=== PATIENT | male | born 1930 | race Caucasian/White ===

== ENCOUNTER 2016-12-03 22:49 | Emergency (ER) | payer MEDICARE, OTHER ==
[~2016-12-03 22:49] MED LIST: ASA5GR PO; ASAB PO; BYSTOLIC10 MG PO; CAT1 PO; CELEXA40 MG PO; CENTRUM PO; D 5000 PO; DCN100 PO; DETROLLA4 PO; FISH-EPA1000 MG PO; FLOMAX4 PO; GLUCCHONDR PO; LEVOTHYROXIN100 MCG PO; LEVOTHYROXIN88 MCG PO; LIPITOR40 PO; MULTIVITAMI1 PO; NEUPRO 4MG4 MG/24 HR TOP; NITROSTAT0.4 MG SL; NORV5 PO; OS500+D PO; PHENADOZ12.5 MG RE; PLAVIX PO; PR25 PO; PROSCAR5 PO; PYRID60 PO; REST15 PO; STALEVO150 PO; SYN1 PO; TRAZ50 PO; ULTRAM50 PO; UROXATRAL PO; VALTREX1 GM PO; VITAMIN D31000 UNIT PO; ZIRGAN5 GM OPH; ZOCOR20 PO
[2016-12-03 23:57] LABS: BASOPHILS 0.3 %; BASOPHILS ABSOLUTE 0.02 10/3/uL (0.0-0.16); EOSINOPHILS 2.9 %; EOSINOPHILS ABSOLUTE 0.19 10/3/uL (0.0-0.53); HEMATOCRIT 36.7 % (40.0-51.0); HEMOGLOBIN 12.4 g/dL (13.6-17.8); LYMPHOCYTES 19.8 %; LYMPHOCYTES ABSOLUTE 1.29 10/3/uL (0.67-4.30); MANUAL DIFF NO %; MEAN CORPUS HGB CONC 33.8 g/dL (32.0-36.0); MEAN CORPUSCULAR HEMOGLOB 30.9 pg (26.0-34.0); MEAN CORPUSCULAR VOLUME 91.5 fL (80-100); MEAN PLATELET VOLUME 10.3 fL (9.2-13.0); MONOCYTES 9.2 %; NEUTROPHILS 67.8 %; NEUTROPHILS ABSOLUTE 4.43 10/3/uL (2.02-8.40); PLATELET COUNT 140 10/3/uL (150-400); RBC DISTRIBUTION WIDTH 14.8 % (12.0-16.0); RED CELL COUNT 4.01 10/6/uL (4.7-6.1); WHITE BLOOD CELLS 6.5 10/3/uL (4.5-10.5)
[2016-12-04 00:04] LABS: INTERNATIONAL NORMAL RATI 1.1 UNITS (-)
[2016-12-04 00:05] LABS: PARTIAL THROMBO TIME 31.9 SEC (22.5-37.2)
[2016-12-04 00:24] LABS: BUN (BLOOD UREA NITROGEN) 27 MG/DL (6-23); CHLORIDE, SERUM 107 MMOL/L (96-112); CO2 (CARBON DIOXIDE) 29 MMOL/L (24-34); GFR AFRICAN AMERICAN 49 ML/MIN (>=60); GFR NON AFRICAN AMERICAN 42 ML/MIN (>=60); GLUCOSE, SERUM 107 MG/DL (60-99); SGOT(AST) 17 U/L (5-40); SGPT(ALT) 9 U/L (5-65); SODIUM, SERUM 141 MMOL/L (135-148); TOTAL BILIRUBIN 0.4 MG/DL (0-1.2); TOTAL PROTEIN 6.3 G/DL (6.0-8.5); TROPONIN I <0.02 NG/ML (<0.05)
[2016-12-04 00:28] LABS: A/G RATIO 1.1 (0.7-1.9); ALBUMIN 3.3 G/DL (3.5-5.0); ALKALINE PHOSPHATASE 67 U/L (45-117); CALCIUM, SERUM 8.3 MG/DL (8.5-10.4); POTASSIUM, SERUM 3.7 MMOL/L (3.5-5.3)
[2016-12-04 01:47] LABS: ASCORBIC ACID (UR NOT ORDER) 20 (NEG); BILIRUBIN, URINE NEGATIVE (NEG); ER URINALYSIS TAT 0 Hrs 00 Mins; KETONE, URINE TRACE MG/DL (NEG); LEUKOCYTE ESTERASE(NOT OR NEG (NEG); NITRITE (URINE) NEG (NEG); WBC (NOT ORDERED) (RFLEX) 5 (0-5)
[2017-03-14] MEDS ORDERED: CYMBALTA30 PO (15:42)
[2017-03-14] MEDS ORDERED: PLAVIX PO (15:43)
[2017-03-14] MEDS ORDERED: LEVOTHYROXIN100 MCG PO (15:43)
[2017-03-14] MEDS ORDERED: MULTIVITAMI1 PO (15:43)
[2017-03-14] MEDS ORDERED: NEUPRO1 EAC1 TOP (15:44)
[2017-03-14] MEDS ORDERED: ASAB PO (15:45)
[2017-03-14] MEDS ORDERED: STALEVO150 PO (15:45)
[2017-03-14] MEDS ORDERED: FISH-EPA1000 MG PO (15:46)
[2017-03-14] MEDS ORDERED: VITAMIN D31000 UNIT PO (15:46)
[2017-03-14] MEDS ORDERED: FLORINEF0.1 MG PO (15:47)
[2017-03-14] MEDS ORDERED: TRAZ50 PO (15:47)
[2017-03-16] MEDS ORDERED: CEFT5 PO (13:11)
== END 2016-12-04 03:07 | disposition home or self-care (01) ==
LOC: ER 22:49
PROVIDERS: Specialist
DX: S20.211A Contusion of right front wall of thorax, initial encounter (principal); I12.9 Hypertensive chronic kidney disease with stage 1 through stage 4 chronic kidney disease, or unspecified chronic kidney disease; N18.9 Chronic kidney disease, unspecified; G20 Parkinson's disease; D64.9 Anemia, unspecified; Z86.73 Personal history of transient ischemic attack (TIA), and cerebral infarction without residual deficits; Z95.0 Presence of cardiac pacemaker; Z88.5 Allergy status to narcotic agent; Z88.8 Allergy status to other drugs, medicaments and biological substances; Z79.899 Other long term (current) drug therapy; Z79.82 Long term (current) use of aspirin; W18.09XA Striking against other object with subsequent fall, initial encounter
CPT/HCPCS: 70450; 71010; 80053; 81001; 84443; 84484; 85025; 85610; 85730; 93005; 99285